=== PATIENT | female | born 1990 | race African-American/Black ===

== ENCOUNTER 2022-01-21 00:09 | Emergency (ER) | payer BC, SELFPAY ==
--- NOTE | ~2022-01-21 | XR_ITS ---
EXAMINATION: XR shoulder LT min 2V DATE: 01/21/2022 01:16 INDICATION: Left shoulder pain TECHNIQUE: AP internally and externally rotated, AP oblique externally rotated and transscapular Y vi ews of the left shoulder were obtained. COMPARISON: None FINDINGS: Normal alignment. No fracture. Glenohumeral joint is normal. Acromioclavicular joint is normal. Soft tissues are unremarkable. IMPRESSION: Negative left shoulder radiographs. Reviewed, dictated and finalized at location A. [employer]
[2022-01-21 00:11] VITALS: BP 136/89; PULSE 88; RESP 16; TEMP 36.2; O2SAT 100
--- NOTE | 2022-01-21 01:00 | ED.UPPEXIN ---
HPI - Extremity Injury (Upper) General Chief Complaint: Extremity Injury, Upper Stated Complaint: Arm pain Time Seen by Provider: 01/21/22 00:31 Source: patient Mode of arrival: ambulatory Limitations: no limitations History of Present Illness HPI narrative: This is a 31 year old female that presents to the ER for left shoulder pain. Ongoing over the last 2 days. No recent injuries or trauma. The pain is worse with movement and relieved with rest. Reports decreased active ROM in the shoulder due to pain. Reports a dull achy pain which is worse at night. Denies erythema, edema, or numbness. Related Data Home Medications Medication Instructions Recorded Confirmed cetirizine 10 mg tablet (Zyrtec) 10 mg PO DAILY PRN 08/06/21 fluticasone propionate 50 1 spray intranasal DAILY 08/06/21 mcg/actuation nasal spray,suspension (Flonase Allergy Relief) Allergies Allergy/AdvReac Type Severity Reaction Status Date / Time Sulfa (Sulfonamide Allergy Mild Unknown Verified 01/21/22 00:10 Antibiotics) Review of Systems Review of Systems: CONSTITUTIONAL: Denies fever CARDIOVASCULAR: Denies chest pain SKIN: Denies rash MUSCULOSKELETAL: Reports joint pain, and myalgia. NEUROLOGIC: Denies numbness, or weakness. All systems reviewed & are unremarkable except as noted in HPI and below PMFSH Past Medical History Medical History Abnormal Pap smear of vagina Asthma Chicken pox Pneumonia Surgical History Surgical History [place] teeth removed (~2009) Family History Family History (Updated 08/12/21 @ 15:34 by Whitley Umana) Father History of prostate cancer Mother Fibroids Sciatica Plantar fasciitis Social History Social History (Updated 08/12/21 @ 15:35 by Whitley Umana) Smoking status: Never smoker Second hand tobacco smoke exposure: No Alcohol intake: current Alcohol use details: Patient drinks occasionally Substance use: never Substance use type: does not use 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 HEAD: Normocephalic, atraumatic. EYES: EOMI. CHEST: Clear to auscultation. No respiratory distress. No wheezes rales or rhonchi HEART: Regular rate and rhythm. No murmur heard. Normal peripheral pulses. EXTREMITIES: Decreased active ROM above 90 degrees in the left shoulder. No edema or erythema. Normal radial pulse. Normal sensation. Pain with Edouard-Raimundo test in the left SKIN: Warm, dry, no rash. NEURO: No focal deficits. Alert and oriented x3. PSYCH: Normal mood and affect Course Vital Signs Vital signs: Vital Signs Temperature 97.2 F L 01/21/22 00:11 Pulse Rate 88 01/21/22 00:11 Respiratory Rate 16 01/21/22 00:11 Blood Pressure 136/89 01/21/22 00:11 Pulse Oximetry 100 01/21/22 00:11 Oxygen Delivery Room Air 01/21/22 00:11 Temperature 97.2 F L 01/21/22 00:11 Pulse Rate 88 01/21/22 00:11 Respiratory Rate 16 01/21/22 00:11 Blood Pressure 136/89 01/21/22 00:11 Pulse Oximetry 100 01/21/22 00:11 Oxygen Delivery Room Air 01/21/22 00:11 MDM - Extremity Injury (Upper) Imaging Data My impression: Left shoulder x-ray: No acute osseous abnormalities Discharge Plan Discharge Clinical Impression: Acute pain of left shoulder Patient Disposition: Home, Self-Care Condition: Stable Instructions: Rotator Cuff Tendinitis (ED) Additional Instructions: Return to the ER if you experience fever, redness and swelling of your arm, chest pain, shortness of breath, numbness, weakness, or any other symptoms that are concerning to you Rest. Ice to the area. Tylenol or Ibuprofen as needed for pain Follow up with orthopedics Prescriptions: No Action cetirizine [Zyrtec] 10 mg tablet 10 mg PO DAILY PRN flut
== END 2022-01-21 01:35 | disposition home or self-care (01) ==
PROVIDERS: Emergency Provider Emergency Medicine; PCP Emergency Medicine
DX: M25.512 Pain in left shoulder (principal); J45.909 Unspecified asthma, uncomplicated
CPT/HCPCS: 73030; 99283; A4565